=== PATIENT | female | born 1975 | race American Indian/Alaskan Native ===

== ENCOUNTER 2017-01-30 01:00 | Outpatient (CLI) | payer BC ==
[2017-01-30 06:25] LABS: Basophils % (Auto) 0.4 % (0.0-1.8); Eosinophils % (Auto) 1.2 % (0.0-4.3); Hematocrit 33.7 % (30.3-42.9); Hemoglobin 10.7 gm/dl (10.1-14.3); Mean Corpuscular HGB Conc 32 % (30-34); Platelet Count 212 K/mm3 (140-440); Red Blood Count 4.91 M/mm3 (3.65-5.03); Red Cell Distribution Width 16.1 % (13.2-15.2); White Blood Count 6.5 K/mm3 (4.5-11.0)
[2017-01-30 06:26] LABS: Mean Corpuscular Hemoglobin 22 pg (28-32); Mean Corpuscular Volume 69 fl (79-97)
[2017-01-30 06:39] LABS: Erythrocyte Sedimentation Rate 23 mm/Hr (0-20)
[2017-01-30 06:48] LABS: Alanine Aminotransferase 26 units/L (7-56); Albumin 4.1 g/dL (3.9-5); Alkaline Phosphatase 54 units/L (35-129); Anion Gap 19 mmol/L; BUN/Creatinine Ratio 8.75; Bilirubin,Total 0.4 mg/dL (0.1-1.2); Blood Urea Nitrogen 7 mg/dL (7-17); Calcium 9.1 mg/dL (8.4-10.2); Carbon Dioxide 24 mmol/L (22-30); Chloride 100.8 mmol/L (98-107); Cholesterol 143 mg/dL (50-199); Glucose 91 mg/dL (65-100); HDL Cholesterol 48 mg/dL (40-59); LDL Cholesterol,Direct 82 mg/dL (50-130); Potassium 4.6 mmol/L (3.6-5.0); Sodium 139 mmol/L (137-145); Total Protein 8.3 g/dL (6.3-8.2); Triglycerides 66 mg/dL (2-149)
[2017-02-01 15:46] LABS: ANA Titer 1:40 (Negative)
== END 2017-01-30 01:01 | disposition home or self-care (01) ==
LOC: LAB 01:00
PROVIDERS: ATTEND Internal Medicine
DX: Z13.9 Encounter for screening, unspecified (principal)
CPT/HCPCS: 36415; 80053; 80061; 84443; 85025; 85652; 86038; 86140; 86618